=== PATIENT | female | born 1995 | race Caucasian/White ===

== ENCOUNTER 2020-01-31 17:30 | Emergency (ER) | payer OTHER ==
[2020-01-31 18:14] VITALS: RESP 18
[2020-01-31 19:27] LABS: Basophils % (A) 0 %; Eosinophils # (A) 0.1 k/uL (0-0.7); Eosinophils % (A) 1 %; HCT 41.2 % (34.0-46.0); HGB 13.6 gm/dL (11.4-16.0); Lymphocytes # (A) 1.8 k/uL (1.0-4.8); Lymphocytes % (A) 15 %; MCH 30.8 pg (25.0-35.0); MCHC 33.1 g/dL (31.0-37.0); MCV 93.1 fL (80.0-100.0); Monocytes # (A) 0.6 k/uL (0-1.0); Monocytes % (A) 5 %; Neutrophils # (A) 9.5 k/uL (1.3-7.7); Neutrophils % (A) 78 %; Platelet Count 254 k/uL (150-450); RBC 4.42 m/uL (3.80-5.40); RDW 12.3 % (11.5-15.5); WBC 12.2 k/uL (3.8-10.6)
[2020-01-31 19:29] LABS: Appearance,Urine Clear (Clear); Bilirubin,Urine Negative (Negative); Blood,Urine Trace (Negative); Color,Urine Yellow; Glucose,Urine (UA) Negative (Negative); Ketones,Urine Negative (Negative); Leukocyte Esterase,Urine Negative (Negative); Mucus,Urine Occasional /hpf; Nitrite,Urine Negative (Negative); PH, Urine 5.5 (5.0-8.0); Protein,Urine Negative (Negative); RBC,Urine 1 /hpf (0-5); Specific Gravity,Urine 1.012 (1.001-1.035); Squamous Epithelial Cell,Urine 2 /hpf (0-4); Urobilinogen,Urine <2.0 mg/dL (<2.0); WBC,Urine <1 /hpf (0-5)
--- NOTE | 2020-01-31 19:38 | ED ---
Female Urogenital HPI - General Chief complaint: Urogenital Stated complaint: 8 weeks , Vaginal bleeding Time Seen by Provider: 01/31/20 18:16 Source: patient Mode of arrival: ambulatory Limitations: no limitations - History of Present Illness Initial comments: Patient is a 25-year-old female presenting to the emergency Department with complaints of vaginal bleeding as well as mild cramping since yesterday. Patient is currently 8 weeks , . Patient states she recently moved from [place] and does not have an LIQUID CHLORINE OPERATOR here yet. Patient states she had an ultrasound performed at approximately 6 weeks due to some mild spotting, no abnormalities seen on the ultrasound. Patient states she went to have intercourse yesterday when she had some mild bleeding so they stopped. Patient states when she woke up this morning she passed a large clot and has been having some mild spotting since. Patient states she's been having mild cramping throughout this , so its normal rhythm usual. She denies any fever, chills. She denies any nausea or vomiting. She has no further complaints at this time. - Related Data Allergies Allergy/AdvReac Type Severity Reaction Status Date / Time No Known Allergies Allergy Verified 01/31/20 18:14 Review of Systems ROS Statement: Those systems with pertinent positive or pertinent negative responses have been documented in the HPI. ROS Other: All systems not noted in ROS Statement are negative. Past Medical History Past Medical History: No Reported History History of Any Multi-Drug Resistant Organisms: None Reported Past Surgical History: No Surgical Hx Reported Past Psychological History: No Psychological Hx Reported Smoking Status: Never smoker Past Alcohol Use History: None Reported Past Drug Use History: None Reported General Exam - General Exam Comments Initial Comments: GENERAL: Well-appearing, well-nourished and in no acute distress. HEAD: Atraumatic, normocephalic. EYES: Pupils equal round and reactive to light, extraocular movements intact, sclera anicteric, conjunctiva are normal. ENT: TMs normal, nares patent, oropharynx clear without exudates. Moist mucous membranes. NECK: Normal range of motion, supple without lymphadenopathy or JVD. LUNGS: Breath sounds clear to auscultation bilaterally and equal. No wheezes rales or rhonchi. HEART: Regular rate and rhythm without murmurs, rubs or gallops. ABDOMEN: Soft, nontender, normoactive bowel sounds. No guarding, no rebound. No masses appreciated. : Normal external exam, cervical os appears closed, small amount of dark blood in vaginal vault. Normal bimanual exam EXTREMITIES: Normal range of motion, no pitting or edema. No clubbing or cyanosis. NEUROLOGICAL: Normal speech, normal gait. PSYCH: Normal mood, normal affect. SKIN: Warm, Dry, normal turgor, no rashes or lesions noted. Limitations: no limitations Course Vital Signs 01/31/20 01/31/20 18:10 20:52 Temperature 98.5 F 98.0 F Pulse Rate 105 H 87 Respiratory 18 18 Rate Blood Pressure 153/84 131/85 O2 Sat by Pulse 100 99 Oximetry Medical Decision Making - Medical Decision Making Patient is a 25-year-old female, approximately 8 weeks presenting with vaginal bleeding and mild cramping since last night. She is . Lab work shows no acute process, hCG Krunal is 133,000. Urine shows no signs of infection. Ultrasound reveals a live IUP. Patient could have a small subchorionic hemorrhage. No other acute findings. heart rate is measured at 178. Patient's blood type is B+. I discussed these findings with the patient. The patient is stable for discharge at this time. She will follow-up with LIQUID CHLORINE OPERATOR. I did recommend pelvic rest. Return parameters were discussed with the patient and she verbalized understanding. Case discussed with Dr. Tomas. - Lab Data Result diagrams: 01/31/20 18:59 01/31/20 18:59 Lab Results 01/31/20 01/31/20 01/31/20 Range/Units 18:59 18:59 18:59 WBC 12.2 H (3.8-10.6) k/uL RBC 4.42 (3.80-5.40) m/uL Hgb 13.6 (11.4-16.0) gm/dL Hct 41.2 (34.0-46.0) % MCV 93.1 (80.0-100.0) fL MCH 30.8 (25.0-35.0) pg MCHC 33.1 (31.0-37.0) g/dL RDW 12.3 (11.5-15.5) % Plt Count 254 (150-450) k/uL Neutrophils % 78 % Lymphocytes % 15 % Monocytes % 5 % Eosinophils % 1 % Basophils % 0 % Neutrophils # 9.5 H (1.3-7.7) k/uL Lymphocytes # 1.8 (1.0-4.8) k/uL Monocytes # 0.6 (0-1.0) k/uL Eosinophils # 0.1 (0-0.7) k/uL Basophils # 0.0 (0-0.2) k/uL Sodium 135 L (137-145) mmol/L Potassium 3.9 (3.5-5.1) mmol/L Chloride 102 (98-107) mmol/L Carbon Dioxide 23 (22-30) mmol/L Anion Gap 10 mmol/L BUN 8 (7-17) mg/dL Creatinine 0.46 L (0.52-1.04) mg/dL Est GFR (CKD-EPI)AfAm >90 (>60 ml/min/1.73 sqM) Est GFR (CKD-EPI)NonAf >90 (>60 ml/min/1.73 sqM) Glucose 101 H (74-99) mg/dL Calcium 10.0 (8.4-10.2) mg/dL HCG, Quant 594069.0 mIU/mL Urine Color Yellow Urine Appearance Clear (Clear) Urine pH 5.5 (5.0-8.0) Ur Specific [place] 1.012 (1.001-1.035) Urine Protein Negative (Negative) Urine Glucose (UA) Negative (Negative) Urine Ketones Negative (Negative) Urine Blood Trace H (Negative) Urine Nitrite Negative (Negative) Urine Bilirubin Negative (Negative) Urine Urobilinogen <2.0 (<2.0) mg/dL Ur Leukocyte Esterase Negative (Negative) Urine RBC 1 (0-5) /hpf Urine WBC <1 (0-5) /hpf Ur Squamous Epith Cells 2 (0-4) /hpf Urine Mucus Occasional H (None) /hpf Blood Type Blood Type Recheck Bld Type Recheck Status 01/31/20 Range/Units 18:59 WBC (3.8-10.6) k/uL RBC (3.80-5.40) m/uL Hgb (11.4-16.0) gm/dL Hct (34.0-46.0) % MCV (80.0-100.0) fL MCH (25.0-35.0) pg MCHC (31.0-37.0) g/dL RDW (11.5-15.5) % Plt Count (150-450) k/uL Neutrophils % % Lymphocytes % % Monocytes % % Eosinophils % % Basophils % % Neutrophils # (1.3-7.7) k/uL Lymphocytes # (1.0-4.8) k/uL Monocytes # (0-1.0) k/uL Eosinophils # (0-0.7) k/uL Basophils # (0-0.2) k/uL Sodium (137-145) mmol/L Potassium (3.5-5.1) mmol/L Chloride (98-107) mmol/L Carbon Dioxide (22-30) mmol/L Anion Gap mmol/L BUN (7-17) mg/dL Creatinine (0.52-1.04) mg/dL Est GFR (CKD-EPI)AfAm (>60 ml/min/1.73 sqM) Est GFR (CKD-EPI)NonAf (>60 ml/min/1.73 sqM) Glucose (74-99) mg/dL Calcium (8.4-10.2) mg/dL HCG, Quant mIU/mL Urine Color Urine Appearance (Clear) Urine pH (5.0-8.0) Ur Specific [place] (1.001-1.035) Urine Protein (Negative) Urine Glucose (UA) (Negative) Urine Ketones (Negative) Urine Blood (Negative) Urine Nitrite (Negative) Urine Bilirubin (Negative) Urine Urobilinogen (<2.0) mg/dL Ur Leukocyte Esterase (Negative) Urine RBC (0-5) /hpf Urine WBC (0-5) /hpf Ur Squamous Epith Cells (0-4) /hpf Urine Mucus (None) /hpf Blood Type B Positive Blood Type Recheck No Previous Record Bld Type Recheck Status [facility] ONLY Disposition Clinical Impression: Vaginal bleeding in Disposition: HOME SELF-CARE Condition: Stable Instructions (If sedation given, give patient instructions): Non-Threatening First Trimester Vaginal Bleed (ED) Additional Instructions: Please return to the Emergency Department if symptoms worsen or any other concerns. Follow-up with LIQUID CHLORINE OPERATOR as discussed. Is patient prescribed a controlled substance at d/c from ED?: No Referrals: None,Stated [Primary Care Provider] - 1-2 days
[2020-01-31 19:41] LABS: African American GFR (CKD) >90 (>60 ml/min/1.73 sqM); Anion Gap 10 mmol/L; Blood Urea Nitrogen 8 mg/dL (7-17); Carbon Dioxide 23 mmol/L (22-30); Chloride 102 mmol/L (98-107); Glucose 101 mg/dL (74-99); Non-African American GFR(CKD) >90 (>60 ml/min/1.73 sqM); Potassium 3.9 mmol/L (3.5-5.1); Sodium 135 mmol/L (137-145)
--- NOTE | 2020-01-31 20:09 | US ---
EXAMINATION TYPE: Transabdominal DATE OF EXAM: 01/31/2020 7:36 PM COMPARISON: NONE CLINICAL HISTORY: cramping, bleeding, passed large clot. Cramping and bleeding x 2 days. Passed larg e clot. . EXAM PERFORMED: Transabdominal (TA) EXAM MEASUREMENTS: GESTATIONAL AGE / DATING Physician Established: (8 weeks/5 days) EDC: 09/06/2020 Dates by LMP: (8 weeks/5 days) EDC: 09/06/2020 Dates by First Scan: This is first scan. Dates by Current Scan for: (8 weeks/3 days) EDC: 09/08/2020 MATERNAL ANATOMY Uterus: 9.2 x 7.0 x 5.6 cm. Right Ovary: 3.0 x 2.4 x 1.7 cm. Left Ovary: Not seen. Post CDS / Adnexa: Appear wnl. Presence of free fluid: Not seen. Presence of corpus luteal cyst: Not seen. Presence of subchorionic bleed: Possible, subtle hypoechoic area seen adjacent and to the right of th e gestational sac measurin.7 x 1.5 x 1.2 cm. GESTATION / SURVEY CRL: 1.88 cm. (8 weeks/3 days) Yolk Sac (normal less than 6mm): 3.6 mm. Heart Rate: 178 bpm, second measurement: 182 bpm. Rhythm: cardiac activity measured 178 bpm and 182 with M-mode Doppler. IUP: Viable IUP Date of LMP: 12/01/2019 Beta HcG (if available): Not available. IMPRESSION: UTERUS: Living intrauterine . Suspicious subtle finding could represent small subchorionic h emorrhage measuring 17 x 15 x 12 mm. ADNEXA: No abnormalities; left ovary not visualized. CUL-DE-SAC: No fluid.
[2020-01-31 20:53] VITALS: BP 131/85; PULSE 87; TEMP 98
== END 2020-01-31 21:21 | disposition home or self-care (01) ==
LOC: EC 17:30
DX: O46.91 Antepartum hemorrhage, unspecified, first trimester (principal); O99.89 Other specified diseases and conditions complicating pregnancy, childbirth and the puerperium; R10.9 Unspecified abdominal pain; Z3A.08 8 weeks gestation of pregnancy
CPT/HCPCS: 36415; 76801; 80048; 81001; 84702; 85025; 86900; 86901; 99284

== ENCOUNTER 2020-08-09 10:53 | Inpatient (IN) | payer OTHER ==
[2020-08-09] MEDS ORDERED: CITRIC ACID-SODIUM CITRATE 15 ML CUP PO ONE (11:38)
[2020-08-09] MEDS: LACTATED RINGERS 1,000 ML IV SCH ×2 (11:53→14:24)
--- NOTE | 2020-08-09 11:53 | P.HPOB ---
History of Present Illness H&P Date: 08/09/20 Chief Complaint: Spontaneous rupture of membranes This is a 25-year-old female 1 para 0 with an estimated date of confinement of 09/06/2020, estimated gestational age of 36-0/7 weeks, who presents to labor and delivery with complaints of spontaneous rupture of membra sakina this morning at 9:30. She has been feeling cramping for the last couple days. She denies any strong contractions. care has been in [place] up until recently when she saw Dr. Stephenson. She was scheduled for an ultrasound and group B strep culture at her next visit on Tuesday. Her course has been uncomplicated. labs: Blood type-be positive Antibody screen-negative Hemoglobin-13.1 Hepatitis B surface antigen-negative HIV-nonreactive GC/Chlamydia-negative Rubella-immune Pap smear-normal One hour Glucola-106 Obstetrical history: . Gynecologic history: No history of sexual transmitted diseases. Social history: Patient just finished nursing school. She is . Review of Systems Constitutional: Denies chills, Denies fever Eyes: denies blurred vision, denies pain Ears, nose, mouth and throat: Denies headache, Denies sore throat Cardiovascular: Denies chest pain, Denies shortness of breath Respiratory: Denies cough Gastrointestinal: Reports abdominal pain (Irregular cramping), Denies diarrhea, Denies nausea, Denies vomiting Genitourinary: Reports pelvic pain, Reports Musculoskeletal: Reports low back pain Integumentary: Denies pruritus, Denies rash Neurological: Denies numbness, Denies weakness Psychiatric: Denies anxiety, Denies depression Past Medical History Past Medical History: No Reported History History of Any Multi-Drug Resistant Organisms: None Reported Past Surgical History: No Surgical Hx Reported Past Anesthesia/Blood Transfusion Reactions: No Reported Reaction Past Psychological History: No Psychological Hx Reported Smoking Status: Never smoker Past Alcohol Use History: None Reported Past Drug Use History: None Reported Medications and Allergies Home Medications Medication Instructions Recorded Confirmed Type Pnv,Calcium 72/Iron/Folic Acid 1 each PO DAILY 08/09/20 08/09/20 History [ Plus Tablet] Allergies Allergy/AdvReac Type Severity Reaction Status Date / Time No Known Allergies Allergy Verified 08/09/20 11:19 Exam Osteopathic Statement: *. No significant issues noted on an osteopathic structural exam other than those noted in the History and Physical/Consult. Intake and Output 08/08/20 08/09/20 08/09/20 22:59 06:59 14:59 Other: Weight 80.739 kg HEENT: Within normal limits Heart: Regular rate and rhythm Lungs: Clear to auscultation bilaterally Abdomen: Cervix: 1-2 cm 50%/-3, questionable position. Positive clear fluid noted. Positive amnisure. Bedside ultrasound performed by myself showed breech presentation. heart tones: Category 1 Contractions: Every 4-5 minutes. Extremities: Negative Homans Assessment and Plan (1) Breech presentation at Current Visit: Yes Status: Acute Code(s): O32.1XX0 - MATERNAL CARE FOR BREECH PRESENTATION, UNSP SNOMED Code(s): 128326652 (2) Spontaneous rupture of membranes Current Visit: Yes Status: Acute Code(s): QQQ5963 - SNOMED Code(s): 737132012 (3) labor in third trimester with delivery Current Visit: Yes Status: Acute Code(s): O60.14X0 - LABOR THIRD TRI W DELIVERY THIRD TRI, UNSP SNOMED Code(s): 30068065869866568 Plan: Admission for spontaneous rupture of membranes. Patient counseled regarding the need for delivery due to breech presentation and rupture of membranes. All questions answered. Will prep for section. I have discussed the risks, benefits, and alternative therapies for the above- mentioned procedure and for both sedation/anesthesia as well as necessary blood products administration, if indicated, as they pertain to this patient. The patient has indicated her understanding and acceptance of the risks and procedures discussed.
[2020-08-09] MEDS ORDERED: KETOROLAC 15 MG/ML 1 ML VIAL ONE (12:08)
[2020-08-09] MEDS ORDERED: ONDANSETRON 4 MG/2 ML VIAL ONE (12:08)
[2020-08-09] MEDS ORDERED: OXYTOCIN 10 UNIT/ML 1 ML VIAL ONE (12:08)
[2020-08-09] MEDS ORDERED: MORPHINE SULFATE (PF) 0.3 MG/0.3 ML SYR ONE (12:08)
[2020-08-09 12:11] LABS: Basophils % (A) 0 %; Eosinophils # (A) 0.2 k/uL (0-0.7); Eosinophils % (A) 2 %; HGB 11.3 gm/dL (11.4-16.0); Lymphocytes # (A) 1.4 k/uL (1.0-4.8); Lymphocytes % (A) 12 %; MCH 29.7 pg (25.0-35.0); MCHC 32.4 g/dL (31.0-37.0); MCV 91.6 fL (80.0-100.0); Monocytes # (A) 0.7 k/uL (0-1.0); Monocytes % (A) 6 %; Neutrophils # (A) 8.8 k/uL (1.3-7.7); Neutrophils % (A) 78 %; Platelet Count 244 k/uL (150-450); RBC 3.82 m/uL (3.80-5.40); RDW 12.8 % (11.5-15.5); WBC 11.2 k/uL (3.8-10.6)
[2020-08-09] MEDS ORDERED: HYDROmorphone 0.5 MG/0.5 ML SYRINGE IVP PRN (12:35)
[2020-08-09] MEDS ORDERED: diphenhydrAMINE 50 MG/ML 1 ML VIAL IVP PRN ×2 (12:35→14:05)
[2020-08-09] MEDS ORDERED: NALOXONE 0.4 MG/ML 1 ML VIAL IV PRN (12:35)
--- NOTE | 2020-08-09 12:58 | P.OP ---
Date of Procedure: 08/09/20 Preoperative Diagnosis: 1. Intrauterine at 36-0/7 weeks. 2. Spontaneous rupture of membranes. 3. Breech presentation. Postoperative Diagnosis: Same Procedure(s) Performed: Primary low transverse section Anesthesia: spinal (Duramorph) Surgeon: Bozena Coto Forest Ranger Technician #1: Jagruti Kitchen Estimated Blood Loss (ml): 300 Pathology: other (Placenta) Condition: stable Disposition: floor Indications for Procedure: This is a 25-year-old female 1 para 0 at 36-0/7 weeks who presented with spontaneous rupture of membranes. Baby was found to be in the breech presentation. She therefore consented to primary section. I have discussed the risks, benefits, and alternative therapies for the above- mentioned procedure and for both sedation/anesthesia as well as necessary blood products administration, if indicated, as they pertain to this patient. The patient has indicated her understanding and acceptance of the risks and procedures discussed. Operative Findings: A viable female infant is noted in the elle breech presentation with scores of 8 at 1 minute and 9 at 5 minutes and infant weight of 5 lbs. 12 oz. Nuchal cord 2 was noted. Normal uterus tubes and ovaries are noted. Description of Procedure: The patient is taken to the operating room where she is placed in the dorsal supine position with leftward tilt after spinal Duramorph anesthesia is given. She is prepped and draped in the normal sterile fashion. Skin was tested and found to be adequately anesthetized. A Pfannenstiel skin incision was made with a scalpel. A second knife was used to carry the incision down to the underlying layer of fascia. The fascia was nicked in the midline with a scalpel and then extended laterally bilaterally with Richardson scissors. The anterior lip of the fascia was grasped with 2 Haseeb clamps and then dissected off the underlying rectus muscle in the midline with Richardson scissors. The inferior aspect of the fascial incision was grasped with 2 Haseeb clamps and dissected off the underlying rectus muscle and the midline with Richardson scissors. Next the peritoneum layer was tented up with 2 hemostats and then entered sharply with the scalpel. The incision is extended superiorly and inferiorly with Metzenbaum scissors. Next a DeLee retractor is placed. The vesicouterine peritoneum is entered sharply with Metzenbaum scissors and extended laterally bilaterally with Metzenbaum scissors and then the bladder flap is pushed inferiorly. The lower uterine segment is incised in transverse fashion with the scalpel and then bluntly entered with a hemostat. Clear fluid is noted. The incision was then extended laterally bilaterally with 2 fingers. Next the 's buttocks was delivered through the incision followed by each leg in a flexed position, followed by the trunk and then each arm in a flexed position. Next the head was delivered in a flexed position reducing nuchal cord 2 after delivery of the head. Cord was then clamped and cut. Terminal meconium was noted. was taken to warmer for evaluation by pediatric staff. Uterine fundus is gently massaged and placenta is delivered manually. Uterus is exteriorized and cleared of all clots and debris. Uterine incision is closed with 0 Vicryl suture in a running locked fashion. A second layer of 0 Vicryl suture is used in a running fashion for hemostasis. Once adequate hemostasis as assured, the vesicouterine peritoneum is reapproximated with 2-0 Vicryl suture in a running fashion. Posterior cul-de-sac is suctioned of all clots and debris. Uterus is returned to the abdomen. Incision is noted to be hemostatic. Peritoneal layer is closed with 0 Vicryl suture in a running fashion. Muscle layer is reapproximated with 0 Vicryl suture in interrupted fashion. Fascia layer is then closed with 0 PDS suture with 2 sutures meeting in the midline and the knots buried in either side and in the midline. The subcutaneous tissue was then closed with 2-0 Vicryl suture. Skin layer was then closed with yolis. All sponge and needle counts are correct. The patient is taken to recovery room in stable condition.
[2020-08-09] MEDS ORDERED: diphenhydrAMINE 50 MG CAP PO PRN (14:05)
[2020-08-09] MEDS ORDERED: diphenhydrAMINE 25 MG CAP PO PRN (14:05)
[2020-08-09] MEDS ORDERED: OXYTOCIN 20 UNITS/1000 ML NS 1,000 ML IV SCH (14:05)
[2020-08-09] MEDS ORDERED: ZOLPIDEM 5 MG TAB PO PRN (14:05)
[2020-08-09] MEDS ORDERED: HYDROcodone/APAP 5-325MG 1 EACH TAB PO PRN (14:05)
[2020-08-09] MEDS ORDERED: LANOLIN CREAM 5 GM TUBE TOPICAL PRN (14:05)
[2020-08-09] MEDS ORDERED: KETOROLAC 15 MG/ML 1 ML VIAL IVP PRN (14:05)
[2020-08-09] MEDS ORDERED: SIMETHICONE 80 MG CHEWABLE PO PRN (14:05)
[2020-08-09] MEDS ORDERED: HYDROcodone/APAP 7.5-325MG 1 EACH TAB PO PRN (14:05)
[2020-08-09] MEDS: METOCLOPRAMIDE 5 MG/ML 2 ML VIAL IVP PRN ×2 (14:19→20:21)
[2020-08-09] MEDS: CALCIUM CARBONATE 500 MG CHEWABLE PO PRN ×2 (17:01→23:45)
[2020-08-09] MEDS: ONDANSETRON 4 MG/2 ML VIAL IVP PRN ×2 (17:17→23:45)
[2020-08-09] MEDS: SENNOSIDES-DOCUSATE SODIUM 1 EACH TAB PO SCH (21:34)
[2020-08-09] MEDS: KETOROLAC 15 MG/ML 1 ML VIAL IVP PRN (21:49)
[2020-08-10] MEDS: KETOROLAC 15 MG/ML 1 ML VIAL IVP PRN ×2 (03:41→09:10)
[2020-08-10 07:17] LABS: Basophils % (A) 0 %; Eosinophils # (A) 0.2 k/uL (0-0.7); Eosinophils % (A) 1 %; HCT 30.5 % (34.0-46.0); HGB 10.3 gm/dL (11.4-16.0); Lymphocytes # (A) 0.9 k/uL (1.0-4.8); Lymphocytes % (A) 6 %; MCH 30.6 pg (25.0-35.0); MCHC 33.9 g/dL (31.0-37.0); MCV 90.3 fL (80.0-100.0); Mean Platelet Volume 8.6; Monocytes # (A) 0.7 k/uL (0-1.0); Monocytes % (A) 5 %; Neutrophils % (A) 87 %; Platelet Count 199 k/uL (150-450); RBC 3.37 m/uL (3.80-5.40); RDW 12.3 % (11.5-15.5)
[2020-08-10] MEDS: SENNOSIDES-DOCUSATE SODIUM 1 EACH TAB PO SCH ×2 (09:26→20:47)
[2020-08-10] MEDS: LACTATED RINGERS 1,000 ML IV SCH (09:26)
--- NOTE | 2020-08-10 10:04 | P.PN ---
Progress Note - Text Progress Note Date: 08/10/20 Postoperative day 1 status post section under spinal anesthesia, and i ntrathecal morphine given for postoperative analgesia, patient doing well, there is no anesthesia related complications, Patient had no headache, vital signs stable , Assessment and plan= postop day 1 status post , doing well there is no anesthesia related complication.
--- NOTE | 2020-08-10 12:18 | P.PNOBGPC ---
Subjective - Subjective Principal diagnosis: Status post primary section postoperative day #1 Interval history: Patient is doing well. She is ambulating. She is passing some flatus but no bowel movement yet. She has not been able to urinate yet. She has been straight cathed 2 times so far. Bleeding has been minimal. Her pain is been fairly well-controlled. She is breast-feeding. Patient reports: Reports appetite normal, Reports pain well controlled, Reports ambulating normally, Denies voiding normally Jesse: doing well, other (In level I nursery) Objective - Vital Signs Latest vital signs: Vital Signs Temp Pulse Resp BP Pulse Ox 08/10/20 08:00 97.5 F L 102 H 15 112/77 98 08/10/20 05:00 16 99 08/10/20 03:33 98.1 F 89 18 118/73 99 08/10/20 03:00 18 08/10/20 01:00 18 99 08/10/20 00:00 98.3 F 110 H 18 137/86 99 08/09/20 23:00 16 08/09/20 21:00 16 99 08/09/20 20:00 98.3 F 75 16 143/82 99 08/09/20 19:00 18 08/09/20 16:00 97.5 F L 115 H 15 130/75 98 08/09/20 15:02 84 15 115/70 100 08/09/20 14:32 97.5 F L 83 15 112/75 100 08/09/20 14:02 78 15 110/66 100 08/09/20 13:47 79 15 107/59 100 08/09/20 13:32 76 15 107/55 99 08/09/20 13:10 94 15 109/59 99 08/09/20 12:55 96.5 F L 84 15 108/56 99 Intake and Output 08/09/20 08/10/20 08/10/20 22:59 06:59 14:59 Output Total 600 1300 950 Balance -600 -1300 -950 Output: Urine 600 1300 950 Uretheral (Meredith) 300 950 - Exam Extremities: Present: edema Abdomen: Present: normal appearance (Trace), soft. Absent: distention, tenderness Incision: Present: normal, dry, intact. Absent: erythematous Uterus: Present: normal, firm. Absent: tenderness - Labs Labs: Abnormal Lab Results - Last 24 Hours (Table) 12/13/20 Range/Units 07:06 WBC 15.0 H (3.8-10.6) k/uL RBC 3.37 L (3.80-5.40) m/uL Hgb 10.3 L (11.4-16.0) gm/dL Hct 30.5 L (34.0-46.0) % Neutrophils # 13.0 H (1.3-7.7) k/uL Lymphocytes # 0.9 L (1.0-4.8) k/uL Assessment and Plan Assessment: Status post primary section postoperative day #1 (1) Breech presentation at Current Visit: Yes Status: Acute Code(s): O32.1XX0 - MATERNAL CARE FOR BREECH PRESENTATION, UNSP SNOMED Code(s): 481813250 (2) Spontaneous rupture of membranes Current Visit: Yes Status: Acute Code(s): [id number] - SNOMED Code(s): 806447023 (3) labor in third trimester with delivery Current Visit: Yes Status: Acute Code(s): O60.14X0 - LABOR THIRD TRI W DELIVERY THIRD TRI, UNSP SNOMED Code(s): 04228234559090737 Plan: Intake and with postoperative care. Encouraged ambulation and oral fluids. We will continue to work on urination. Pumping breast milk currently.
[2020-08-10] MEDS: ACETAMINOPHEN TAB 325 MG TAB PO PRN ×2 (14:40→21:49)
[2020-08-10] MEDS: IBUPROFEN 600 MG TAB PO PRN (18:02)
[2020-08-11] MEDS: IBUPROFEN 600 MG TAB PO PRN ×2 (00:28→15:31)
[2020-08-11] MEDS: CALCIUM CARBONATE 500 MG CHEWABLE PO PRN (00:30)
--- NOTE | 2020-08-11 08:19 | P.MSEPDOC ---
Presenting Problems - Arrival Data Date of Arrival on Unit: 08/09/20 Time of Arrival on Unit: 11:11 Mode of Transport: Wheelchair - Complaint OB-Reason for Admission/Chief Complaint: Rule Out SROM Comment: SROM for clear fluid at 0923 Medical History - Information : 1 Para: 0 Term: 0 : 0 Abortions: Spontaneous or Elective: 0 Number of Living Children: 0 - Gestational Age Gestational Age by CATHERINE (wks/days): 36 Weeks and 0 Days Review of Systems - Review of Systems Constitutional: No problems Breast: No problems ENT: No problems Cardiovascular: No problems Respiratory: No problems Gastrointestinal: No problems Genitourinary: No problems Musculoskeletal: No problems Neurological: No problems Skin: No problems Vital Signs - Temperature Temperature: 98.0 F Temperature Source: Oral - Pulse Pulse Oximetery Pulse Rate: 99 Pulse Assessment Method: Automatic Cuff - Respirations Respiratory Rate: 16 Oxygen Delivery Method: Room Air O2 Sat by Pulse Oximetry: 99 - Blood Pressure Right Arm Blood Pressure: 120/75 Blood Pressure Mean: 90 Blood Pressure Source: Automatic Cuff Medical Screen Scoring (Pre) - Cervical Exam Dilation: 1-3 cm = 1 Effacement: Exam Deferred Membranes: Ruptured = 3 - Uterine Contractions Frequency: Scheduled / = 6 Duration: N/A Intensity: N/A - Maternal Vital Signs Maternal Temperature: N/A Maternal Blood Pressure: N/A Signs of Preeclampsia: N/A Maternal Respirations: N/A - Maternal Trauma Maternal Trauma: N/A - Assessment - Baby A Baseline FHR: 135 Heart Rate - NICHD Category: Category I (Normal) = 0 NST: Reactive Position: Non-vertex & not laboring = 3 Station: N/A - Total Score - Baby A Total Score - Baby A: 13 - Total Score - Baby B Total Score - Baby B: 10 - Total Score - Baby C Total Score - Baby C: 10 - Level of Risk - Baby A Level of Risk - Baby A: High (10+) - Level of Risk - Baby B Level of Risk - Baby B: High (10+) - Level of Risk - Baby C Level of Risk - Baby C: High (10+) Physician Notification (Pre) - Physician Notified Physician Notified Date: 08/09/20 Physician Notified Time: 20 New Order Received: Yes Disposition - Disposition OB Disposition: Admit I agree with the RN Medical Screening Exam: Yes Risk & Benefit of care provided described in d/c instruction: Yes Diagnosis: LABOR THIRD TRI W DELIVERY THIRD TRI, OTH
[2020-08-11] MEDS: SENNOSIDES-DOCUSATE SODIUM 1 EACH TAB PO SCH ×2 (08:40→19:47)
[2020-08-11] MEDS: ACETAMINOPHEN TAB 325 MG TAB PO PRN ×2 (08:53→19:47)
[2020-08-11] MEDS: CEPHALEXIN 500 MG CAP PO SCH ×2 (17:14→22:19)
--- NOTE | 2020-08-12 06:38 | P.PNOBGPC ---
Subjective - Subjective Patient reports: Reports appetite normal, Reports voiding normally, Reports pain well controlled, Reports ambulating normally Shelby: doing well Objective - Vital Signs Latest vital signs: Vital Signs Temp Pulse Resp BP Pulse Ox 08/11/20 23:31 98.1 F 82 16 119/70 08/11/20 23:29 100 16 08/11/20 15:40 98.2 F 100 16 105/64 08/11/20 09:00 98.2 F 105 H 17 114/89 99 08/11/20 08:19 98.0 F 99 16 120/75 99 - Exam Lungs: bilateral: normal Chest: Normal S1, Normal S2 Extremities: Present: normal Abdomen: Present: soft. Absent: distention, tenderness Incision: Present: normal, dry, intact Uterus: Present: normal, firm Comments: Patient has some redness around the incision that is nontender or warm. Assessment and Plan Assessment: Postoperative day #3. Patient is resting without complaints. She did develop some discoloration around her incision and abdomen yesterday and I examined her and it appeared to have some red color. Did not feel warm to touch did not have a typical appearance of a cellulitis but to be safe I placed her on oral Keflex. I am also going to check a CBC today. Plan is to continue postoperative care and I'll reexamine her abdomen today at noon. (1) S/P section Current Visit: Yes Status: Acute Code(s): Z98.891 - HISTORY OF UTERINE SCAR FROM PREVIOUS SURGERY SNOMED Code(s): 870881546
[2020-08-12 07:18] LABS: Basophils # (A) 0.1 k/uL (0-0.2); Basophils % (A) 0 %; Eosinophils # (A) 0.4 k/uL (0-0.7); Eosinophils % (A) 4 %; HCT 32.7 % (34.0-46.0); HGB 10.7 gm/dL (11.4-16.0); Lymphocytes # (A) 1.1 k/uL (1.0-4.8); Lymphocytes % (A) 10 %; MCH 30.2 pg (25.0-35.0); MCHC 32.8 g/dL (31.0-37.0); MCV 92.1 fL (80.0-100.0); Mean Platelet Volume 8.4; Monocytes # (A) 0.6 k/uL (0-1.0); Monocytes % (A) 5 %; Neutrophils # (A) 8.8 k/uL (1.3-7.7); Neutrophils % (A) 78 %; Platelet Count 246 k/uL (150-450); RBC 3.55 m/uL (3.80-5.40); RDW 12.6 % (11.5-15.5); WBC 11.2 k/uL (3.8-10.6)
[2020-08-12] MEDS: SENNOSIDES-DOCUSATE SODIUM 1 EACH TAB PO SCH ×2 (09:23→21:59)
[2020-08-12] MEDS: CEPHALEXIN 500 MG CAP PO SCH ×4 (09:23→21:58)
[2020-08-12] MEDS: IBUPROFEN 600 MG TAB PO PRN ×2 (13:11→19:14)
[2020-08-12] MEDS: ACETAMINOPHEN TAB 325 MG TAB PO PRN ×2 (17:32→22:42)
--- NOTE | 2020-08-13 06:34 | P.PNOBGPC ---
Subjective - Subjective Patient reports: Reports appetite normal, Reports voiding normally, Reports pain well controlled, Reports ambulating normally : doing well Objective - Vital Signs Latest vital signs: Vital Signs Temp Pulse Resp BP Pulse Ox 08/13/20 00:00 97.4 F L 98 18 130/88 100 08/12/20 16:00 98.1 F 92 16 136/72 08/12/20 08:00 98.1 F 100 17 135/74 - Exam Lungs: bilateral: normal Chest: Normal S1, Normal S2 Extremities: Present: normal Abdomen: Present: normal appearance, soft. Absent: distention, tenderness Incision: Present: normal, dry, intact Uterus: Present: normal, firm - Labs Labs: Abnormal Lab Results - Last 24 Hours (Table) 08/12/20 Range/Units 06:45 WBC 11.2 H (3.8-10.6) k/uL RBC 3.55 L (3.80-5.40) m/uL Hgb 10.7 L (11.4-16.0) gm/dL Hct 32.7 L (34.0-46.0) % Neutrophils # 8.8 H (1.3-7.7) k/uL Assessment and Plan Assessment: Postoperative day #4. Patient is resting without complaints. Vital signs are stable she is afebrile. Uterus is firm nontender her incision is intact and dry. Still some red discoloration around the incision but it is not warm or tenderness does appear improved. Plan today is to continue routine postoperative care. Discharge home later today. Follow-up with me in 1 week. (1) S/P section Current Visit: Yes Status: Acute Code(s): Z98.891 - HISTORY OF UTERINE SCAR FROM PREVIOUS SURGERY SNOMED Code(s): 282068172
--- NOTE | 2020-08-13 06:43 | P.DS ---
Providers Date of admission: 08/09/20 11:11 Expected date of discharge: 08/13/20 Attending physician: Kush Stephenson Primary care physician: Stated None - Discharge Diagnosis(es) (1) S/P section Current Visit: Yes Status: Acute Hospital Course: Please see dictated H&P for intimate details of this patient's admission. Brief summary is a pleasant 25-year-old 1 para 0 female 36 weeks gestation who is admitted to labor and delivery with spontaneous rupture membranes (PROM) and breech presentation. Patient undergoes a primary low transverse section for viable female . Please see dictated delivery note. Postoperative patient does well home but on postoperative 2 developed some discoloration of the incision and although this was not considered to be a cellulitis I did prophylactically place her on oral Keflex. Postoperative 4 patient's felt be stable for discharge home follow up with me in approximately 1 week. Procedures: Primary low transverse section Patient Condition at Discharge: Good Plan - Discharge Summary New Discharge Prescriptions: New Cephalexin [Keflex] 500 mg PO QID 5 Days #20 cap Ibuprofen [Motrin] 600 mg PO Q6HR PRN #40 tab PRN Reason: Mild Pain Or Fever >= 100.5 HYDROcodone/APAP 5-325MG [[place] 5-325] 1 each PO Q4HR PRN #18 tab PRN Reason: Moderate Pain No Action Pnv,Calcium 72/Iron/Folic Acid [ Plus Tablet] 1 each PO DAILY Discharge Medication List Pnv,Calcium 72/Iron/Folic Acid [ Plus Tablet] 1 each PO DAILY 08/09/20 [History] Cephalexin [Keflex] 500 mg PO QID 5 Days #20 cap 08/13/20 [Rx] HYDROcodone/APAP 5-325MG [[place] 5-325] 1 each PO Q4HR PRN #18 tab 08/13/20 [Rx] Ibuprofen [Motrin] 600 mg PO Q6HR PRN #40 tab 08/13/20 [Rx] Follow up Appointment(s)/Referral(s): Kush Stephenson MD [STAFF PHYSICIAN] - 08/25/20 2:30 pm (Please see me on September 18 at 10:15 AM for a visit as well.) Patient Instructions/Handouts: (DC) Activity/Diet/Wound Care/Special Instructions: No heavy lifting or strenuous activities for 6 weeks. Please call if any fever, chills, excessive vaginal bleeding, and/or abdominal pain. Discharge Disposition: HOME SELF-CARE
[2020-08-13] MEDS: IBUPROFEN 600 MG TAB PO PRN ×2 (07:51→18:50)
[2020-08-13] MEDS: SENNOSIDES-DOCUSATE SODIUM 1 EACH TAB PO SCH ×2 (08:01→20:19)
[2020-08-13] MEDS: CEPHALEXIN 500 MG CAP PO SCH ×4 (09:27→22:53)
[2020-08-13 15:52] LABS: Basophils % (A) 0 %; Eosinophils # (A) 0.4 k/uL (0-0.7); Eosinophils % (A) 4 %; HCT 34.3 % (34.0-46.0); HGB 11.1 gm/dL (11.4-16.0); Lymphocytes # (A) 1.9 k/uL (1.0-4.8); Lymphocytes % (A) 19 %; MCH 29.5 pg (25.0-35.0); MCHC 32.4 g/dL (31.0-37.0); MCV 90.9 fL (80.0-100.0); Mean Platelet Volume 8.2; Monocytes # (A) 0.6 k/uL (0-1.0); Monocytes % (A) 6 %; Neutrophils # (A) 6.9 k/uL (1.3-7.7); Neutrophils % (A) 68 %; Platelet Count 312 k/uL (150-450); RBC 3.77 m/uL (3.80-5.40); RDW 12.8 % (11.5-15.5); WBC 10.1 k/uL (3.8-10.6)
[2020-08-13 15:58] LABS: Uric Acid 3.9 mg/dL (3.7-7.4)
--- NOTE | 2020-08-13 17:01 | P.PN ---
Progress Note - Text Progress Note Date: 08/13/20 Patient has developed elevated blood pressures the highest 144/96. I did order preeclampsia blood work and she's had mild elevation of her AST and ALTs. Uric acid and platelets are normal. Repeat blood pressures are only slightly elevated. Patient does have some edema but this appears to be normal. She's having no headache or other signs or symptoms. Plan is to continue in-hospital observation with serial blood pressures and repeat blood work in the morning. I had a long discussion with the patient and her about my concerns and need for continued hospitalization.
[2020-08-13] MEDS: ACETAMINOPHEN TAB 325 MG TAB PO PRN (20:04)
[2020-08-14] MEDS: IBUPROFEN 600 MG TAB PO PRN ×3 (00:43→14:44)
[2020-08-14 05:59] LABS: Basophils # (A) 0.1 k/uL (0-0.2); Basophils % (A) 1 %; Eosinophils # (A) 0.5 k/uL (0-0.7); Eosinophils % (A) 5 %; HCT 34.9 % (34.0-46.0); HGB 11.4 gm/dL (11.4-16.0); Lymphocytes # (A) 1.6 k/uL (1.0-4.8); Lymphocytes % (A) 18 %; MCH 30.1 pg (25.0-35.0); MCHC 32.6 g/dL (31.0-37.0); MCV 92.3 fL (80.0-100.0); Mean Platelet Volume 7.9; Monocytes # (A) 0.5 k/uL (0-1.0); Monocytes % (A) 5 %; Neutrophils # (A) 6.3 k/uL (1.3-7.7); Neutrophils % (A) 69 %; Platelet Count 297 k/uL (150-450); RBC 3.78 m/uL (3.80-5.40); RDW 12.4 % (11.5-15.5); WBC 9.1 k/uL (3.8-10.6)
[2020-08-14 06:05] LABS: ALT 63 U/L (4-34); AST 44 U/L (14-36); African American GFR (CKD) >90 (>60 ml/min/1.73 sqM); Albumin 3.3 g/dL (3.5-5.0); Alkaline Phosphatase 176 U/L (38-126); Bilirubin, Delta 0.1 mg/dL (0.0-0.2); Bilirubin,Unconjugated 0.2 mg/dL (0.0-1.1); Non-African American GFR(CKD) >90 (>60 ml/min/1.73 sqM); Total Bilirubin 0.3 mg/dL (0.2-1.3); Total Protein 6.4 g/dL (6.3-8.2)
--- NOTE | 2020-08-14 06:29 | P.PNOBGPC ---
Subjective - Subjective Patient reports: Reports appetite normal, Reports voiding normally, Reports pain well controlled, Reports ambulating normally : doing well Objective - Vital Signs Latest vital signs: Vital Signs Temp Pulse Resp BP Pulse Ox 08/14/20 03:40 97.7 F 98 18 135/87 98 08/14/20 00:40 98.4 F 93 18 125/88 100 08/13/20 20:20 98.0 F 104 H 18 129/90 96 08/13/20 15:28 97.9 F 98 16 137/93 99 08/13/20 15:00 94 16 144/96 99 08/13/20 07:56 98.1 F 96 16 131/64 100 - Exam Lungs: bilateral: normal Chest: Normal S1, Normal S2 Extremities: Present: normal Abdomen: Present: normal appearance, soft. Absent: distention, tenderness Incision: Present: normal, dry, intact Uterus: Present: normal, firm - Labs Labs: Abnormal Lab Results - Last 24 Hours (Table) 08/13/20 08/13/20 08/14/20 Range/Units 15:28 15:28 05:43 RBC 3.77 L 3.78 L (3.80-5.40) m/uL Hgb 11.1 L (11.4-16.0) gm/dL AST 62 H (14-36) U/L ALT 81 H (4-34) U/L Alkaline Phosphatase (38-126) U/L Albumin (3.5-5.0) g/dL 08/14/20 Range/Units 05:43 RBC (3.80-5.40) m/uL Hgb (11.4-16.0) gm/dL AST 44 H (14-36) U/L ALT 63 H (4-34) U/L Alkaline Phosphatase 176 H (38-126) U/L Albumin 3.3 L (3.5-5.0) g/dL Assessment and Plan Assessment: Stop operative day #5. I kept this patient yesterday because she had several mild blood pressure elevations and blood work showed some elevated liver function tests. She was for the most part asymptomatic. Blood pressures over night and then good 120s to 130s over 80s. Repeat liver tests this morning show both improvement in her AST and ALTs. At this time there is no evidence of hypertension requiring treatment or indication to continue inpatient hospitalization. Plan is to discharge home follow up with me in approximately 1 week for blood pressure check and a repeat her liver tests that time. (1) S/P section Current Visit: Yes Status: Acute Code(s): Z98.891 - HISTORY OF UTERINE SCAR FROM PREVIOUS SURGERY SNOMED Code(s): 414265918
[2020-08-14] MEDS: CEPHALEXIN 500 MG CAP PO SCH ×3 (07:59→18:05)
[2020-08-14] MEDS: SENNOSIDES-DOCUSATE SODIUM 1 EACH TAB PO SCH (07:59)
[2020-08-14 08:08] VITALS: RESP 16
[2020-08-14] MEDS: ACETAMINOPHEN TAB 325 MG TAB PO PRN ×2 (11:00→16:46)
[2020-08-14 17:35] VITALS: BP 133/83; PULSE 101; TEMP 98.6
== END 2020-08-14 19:00 | disposition home or self-care (01) | DRG 786 ==
LOC: FBPOP 10:53 → 4FBP 11:11
PROVIDERS: ADMIT Obstetrics & Gynecology; ATTEND Obstetrics & Gynecology
PROC: 10D00Z1 Extraction of Products of Conception, Low, Open Approach (ICD-10-PCS; principal; 2020-08-09 12:19)
DX: O32.1XX0 Maternal care for breech presentation, not applicable or unspecified (principal); O60.14X0 Preterm labor third trimester with preterm delivery third trimester, not applicable or unspecified; O42.013 Preterm premature rupture of membranes, onset of labor within 24 hours of rupture, third trimester; O69.81X0 Labor and delivery complicated by cord around neck, without compression, not applicable or unspecified; Z37.0 Single live birth; Z3A.36 36 weeks gestation of pregnancy; Z79.899 Other long term (current) drug therapy
CPT/HCPCS: 80076; 82565; 84450; 84460; 84550; 85025; 86850; 86900; 86901; 88307

== ENCOUNTER 2021-09-27 12:18 | Emergency (ER) | payer OTHER ==
[2021-09-27] MEDS ORDERED: ONDANSETRON 4 MG/2 ML VIAL IVP STA (12:59)
[2021-09-27] MEDS ORDERED: SODIUM CHLORIDE 0.9% 2,000 ML IV STA (12:59)
--- NOTE | 2021-09-27 13:04 | ED ---
General Adult HPI - General Chief complaint: Nausea/Vomiting/Diarrhea Stated complaint: N/V/D Dr Coto sent pt in Time Seen by Provider: 09/27/21 12:38 Source: patient Mode of arrival: ambulatory Limitations: no limitations - History of Present Illness Initial comments: This 26-year-old female who is 9 weeks presents to the emergency department with nausea vomiting and diarrhea that began last night. Patient states she had [employer] yesterday for lunch and states she may have eaten something which resulted in her having food poisoning. Patient states she has had some nausea and vomiting throughout this but nothing like now. Patient states last night she began to experience nausea and vomited about one time per hour until this morning. Patient states she also experienced 2 episodes of nonbloody diarrhea which has since resolved. Patient states she did take Zofran yesterday which seemed to help for a little bit of time. Patient states she has been able to keep down Pedialyte today but has not tried to eat any food. Patient denies any hemoptysis or blood in her stool. Patient denies any chest pain, shortness of breath, fever, abdominal pain, headache, change in vision. Patient denies any vaginal bleeding or abdominal cramping. Patient states she called her [facility], Dr. Coto who told her to come here and get some fluids. - Related Data Home Medications Medication Instructions Recorded Confirmed Pnv,Calcium 72/Iron/Folic Acid 1 tab PO DAILY 08/09/20 09/27/21 [ Plus Tablet] Ondansetron [Zofran] 4 mg PO Q12HR PRN 09/27/21 09/27/21 Previous Rx's Medication Instructions Recorded Ondansetron Odt [Zofran ODT] 4 mg PO Q8HR PRN #15 tab 09/27/21 Allergies Allergy/AdvReac Type Severity Reaction Status Date / Time No Known Allergies Allergy Verified 09/27/21 13:24 Review of Systems ROS Statement: Those systems with pertinent positive or pertinent negative responses have been documented in the HPI. ROS Other: All systems not noted in ROS Statement are negative. Past Medical History Past Medical History: No Reported History History of Any Multi-Drug Resistant Organisms: None Reported Past Surgical History: Section Past Anesthesia/Blood Transfusion Reactions: No Reported Reaction Past Psychological History: No Psychological Hx Reported Smoking Status: Never smoker Past Alcohol Use History: None Reported Past Drug Use History: None Reported - Past Family History Mother Family Medical History: No Reported History General Exam Limitations: no limitations General appearance: alert, in no apparent distress Head exam: Present: atraumatic, normocephalic, normal inspection Eye exam: Present: normal appearance, EOMI Pupils: Present: normal accommodation ENT exam: Present: normal exam, mucous membranes moist Neck exam: Present: full ROM Respiratory exam: Present: normal lung sounds bilaterally. Absent: respiratory distress, wheezes, rales, rhonchi, stridor Cardiovascular Exam: Present: regular rate, normal rhythm, normal heart sounds. Absent: systolic murmur, diastolic murmur, rubs, gallop, clicks GI/Abdominal exam: Present: soft, normal bowel sounds. Absent: distended, tenderness, guarding, rebound, rigid Extremities exam: Present: normal inspection, full ROM, normal capillary refill. Absent: tenderness, pedal edema, joint swelling, calf tenderness Back exam: Present: full ROM. Absent: tenderness, CVA tenderness (R), CVA tenderness (L) Neurological exam: Present: alert, oriented X3, CN II-XII intact Psychiatric exam: Present: normal affect, normal mood Skin exam: Present: warm, dry, intact, normal color. Absent: rash Course Vital Signs 09/27/21 09/27/21 12:27 14:43 Temperature 98.2 F Pulse Rate 102 H 100 Respiratory 16 18 Rate Blood Pressure 119/70 100/48 O2 Sat by Pulse 99 98 Oximetry - Reevaluation(s) Reevaluation #1: 09/27/21 15:10 Patient states she feels much better she denies any nausea at this time. Medical Decision Making - Medical Decision Making This 26-year-old female presents to the emergency department 9 weeks with nausea, vomiting, diarrhea that began last night after she ate [employer]. Fluids and Zofran given and patient states she feels well-hydrated and no longer has any nausea. Patient states she feels well no complaints other than being tired because she got no sleep last night. Labs unremarkable. Urine with 2+ ketones, 2 L of fluid were given. Patient to follow up with [facility] in next 24- 48 hours. Strict return precautions were discussed. Patient verbally agreed to plan. Patient sent home in stable condition. - Lab Data Result diagrams: 09/27/21 13:05 09/27/21 13:05 Lab Results 09/27/21 09/27/21 09/27/21 Range/Units 13:05 13:05 13:05 WBC 7.5 (3.8-10.6) k/uL RBC 4.69 (3.80-5.40) m/uL Hgb 14.6 (11.4-16.0) gm/dL Hct 42.5 (34.0-46.0) % MCV 90.6 (80.0-100.0) fL MCH 31.0 (25.0-35.0) pg MCHC 34.3 (31.0-37.0) g/dL RDW 13.4 (11.5-15.5) % Plt Count 177 (150-450) k/uL MPV 8.9 Neutrophils % 88 % Lymphocytes % 5 % Monocytes % 5 % Eosinophils % 1 % Basophils % 0 % Neutrophils # 6.6 (1.3-7.7) k/uL Lymphocytes # 0.4 L (1.0-4.8) k/uL Monocytes # 0.4 (0-1.0) k/uL Eosinophils # 0.1 (0-0.7) k/uL Basophils # 0.0 (0-0.2) k/uL Sodium 133 L (137-145) mmol/L Potassium 3.6 (3.5-5.1) mmol/L Chloride 106 (98-107) mmol/L Carbon Dioxide 19 L (22-30) mmol/L Anion Gap 8 mmol/L BUN 8 (7-17) mg/dL Creatinine 0.49 L (0.52-1.04) mg/dL Est GFR (CKD-EPI)AfAm >90 (>60 ml/min/1.73 sqM) Est GFR (CKD-EPI)NonAf >90 (>60 ml/min/1.73 sqM) Glucose 101 H (74-99) mg/dL Calcium 8.7 (8.4-10.2) mg/dL Total Bilirubin 0.6 (0.2-1.3) mg/dL AST 26 (14-36) U/L ALT 18 (4-34) U/L Alkaline Phosphatase 64 (38-126) U/L Total Protein 7.2 (6.3-8.2) g/dL Albumin 4.0 (3.5-5.0) g/dL Lipase 64 (23-300) U/L Urine Color Light Yellow Urine Appearance Clear (Clear) Urine pH 5.5 (5.0-8.0) Ur Specific [place] 1.013 (1.001-1.035) Urine Protein Negative (Negative) Urine Glucose (UA) Negative (Negative) Urine Ketones 2+ H (Negative) Urine Blood Negative (Negative) Urine Nitrite Negative (Negative) Urine Bilirubin Negative (Negative) Urine Urobilinogen <2.0 (<2.0) mg/dL Ur Leukocyte Esterase Negative (Negative) Disposition Clinical Impression: Dehydration during , Nausea and vomiting during Disposition: HOME SELF-CARE Condition: Stable Instructions (If sedation given, give patient instructions): Hyperemesis Gravidarum (ED) Additional Instructions: Please return to the emergency department with any concerning, new, or worsening symptoms. Please follow up with [facility] in next 24-48 hours. Prescriptions: Ondansetron Odt [Zofran ODT] 4 mg PO Q8HR PRN #15 tab PRN Reason: Nausea And Vomiting Is patient prescribed a controlled substance at d/c from ED?: No Referrals: None,Stated [Primary Care Provider] - 1-2 days Time of Disposition: 15:17
[2021-09-27 13:17] LABS: Basophils % (A) 0 %; Eosinophils # (A) 0.1 k/uL (0-0.7); Eosinophils % (A) 1 %; HCT 42.5 % (34.0-46.0); HGB 14.6 gm/dL (11.4-16.0); Lymphocytes # (A) 0.4 k/uL (1.0-4.8); Lymphocytes % (A) 5 %; MCHC 34.3 g/dL (31.0-37.0); MCV 90.6 fL (80.0-100.0); Mean Platelet Volume 8.9; Monocytes # (A) 0.4 k/uL (0-1.0); Monocytes % (A) 5 %; Neutrophils # (A) 6.6 k/uL (1.3-7.7); Neutrophils % (A) 88 %; Platelet Count 177 k/uL (150-450); RBC 4.69 m/uL (3.80-5.40); RDW 13.4 % (11.5-15.5); WBC 7.5 k/uL (3.8-10.6)
[2021-09-27 13:42] LABS: ALT 18 U/L (4-34); AST 26 U/L (14-36); African American GFR (CKD) >90 (>60 ml/min/1.73 sqM); Alkaline Phosphatase 64 U/L (38-126); Anion Gap 8 mmol/L; Blood Urea Nitrogen 8 mg/dL (7-17); Calcium 8.7 mg/dL (8.4-10.2); Carbon Dioxide 19 mmol/L (22-30); Chloride 106 mmol/L (98-107); Glucose 101 mg/dL (74-99); Lipase 64 U/L (23-300); Non-African American GFR(CKD) >90 (>60 ml/min/1.73 sqM); Potassium 3.6 mmol/L (3.5-5.1); Sodium 133 mmol/L (137-145); Total Bilirubin 0.6 mg/dL (0.2-1.3); Total Protein 7.2 g/dL (6.3-8.2)
[2021-09-27 14:50] LABS: Appearance,Urine Clear (Clear); Bilirubin,Urine Negative (Negative); Blood,Urine Negative (Negative); Color,Urine Light Yellow; Glucose,Urine (UA) Negative (Negative); Ketones,Urine 2+ (Negative); Leukocyte Esterase,Urine Negative (Negative); Nitrite,Urine Negative (Negative); PH, Urine 5.5 (5.0-8.0); Protein,Urine Negative (Negative); Specific Gravity,Urine 1.013 (1.001-1.035); Urobilinogen,Urine <2.0 mg/dL (<2.0)
[2021-09-27 15:34] VITALS: BP 108/50; PULSE 92; RESP 20; TEMP 98.1
== END 2021-09-27 15:33 | disposition home or self-care (01) ==
LOC: EC 12:18
DX: O99.281 Endocrine, nutritional and metabolic diseases complicating pregnancy, first trimester (principal); O21.9 Vomiting of pregnancy, unspecified; Z3A.09 9 weeks gestation of pregnancy
CPT/HCPCS: 36415; 80053; 83690; 85025; 81003; 99284; 96374; J2405

== ENCOUNTER 2022-02-10 21:25 | Outpatient (CLI) | payer OTHER ==
[2022-02-10 23:20] LABS: Appearance,Urine Clear (Clear); Bilirubin,Urine Negative (Negative); Blood,Urine Negative (Negative); Color,Urine Light Yellow; Glucose,Urine (UA) Negative (Negative); Ketones,Urine Negative (Negative); Leukocyte Esterase,Urine Negative (Negative); Nitrite,Urine Negative (Negative); PH, Urine 5.5 (5.0-8.0); Protein,Urine Negative (Negative); Specific Gravity,Urine 1.011 (1.001-1.035); Urobilinogen,Urine <2.0 mg/dL (<2.0)
[2022-02-10 23:34] VITALS: BP 120/75; PULSE 99; RESP 16; TEMP 98.3
--- NOTE | 2022-02-11 06:47 | P.MSEPDOC ---
Presenting Problems - Arrival Data Date of Arrival on Unit: 02/10/22 Time of Arrival on Unit: 21:25 Mode of Transport: Ambulatory - Complaint OB-Reason for Admission/Chief Complaint: Pain Comment: abd pain 6/10 left lower abd Medical History - Information : 2 Para: 1 Term: 0 : 1 Abortions: Spontaneous or Elective: 0 Number of Living Children: 1 - Gestational Age Gestational Age by CATHERINE (wks/days): 28 Weeks and 6 Days Review of Systems - Review of Systems Constitutional: No problems Breast: No problems ENT: No problems Cardiovascular: No problems Respiratory: No problems Gastrointestinal: No problems Genitourinary: No problems Musculoskeletal: No problems Neurological: No problems Skin: No problems Vital Signs - Temperature Temperature: 98.3 F Temperature Source: Oral - Pulse Pulse Oximetery Pulse Rate: 99 Pulse Assessment Method: Pulse Oximetry - Respirations Respiratory Rate: 16 Oxygen Delivery Method: Room Air - Blood Pressure Right Arm Blood Pressure: 120/75 Blood Pressure Mean: 90 Blood Pressure Source: Automatic Cuff Medical Screen Scoring - Cervical Exam Dilation (cm): 0 Effacement (%): 0 Station: 0 Membranes: Intact - Assessment - Baby A Baseline FHR: 150 Heart Rate - NICHD Category: Category I (Normal) NST: Reactive Physician Notification - Physician Notified Physician Notified Date: 02/10/22 Physician Notified Time: 21:50 Physician: Kush Stephenson New Order Received: Yes - Notification Comment Comment: orders for ffn and cervical check. if closed then don't send ffn. send u/a if normal pt can be d/c Maternal Triage Index - Maternal Triage Index Presenting for scheduled procedure w/no complaint: No - Stat/Priority 1 Stat Priority 1: No - Urgent/Priority 2 Urgent Priority 2: No - Prompt/Priority 3 Prompt Priority 3: No - Non-Urgent/Priority 4 Non-Urgent Priority 4: Yes Criteria Met for Priority 4: abd pain Disposition - Disposition OB Disposition: Discharge to home Discharge Date: 02/10/22 Discharge Time: 23:28 I agree with the RN Medical Screening Exam: Yes Case reviewed; plan agreed upon as documented in EMR&OBIX.: Yes Diagnosis: FALSE LABOR BEFORE 37 COMPLETED WEEKS OF GEST, THIRD TRI
== END 2022-02-10 23:28 | disposition home or self-care (01) ==
LOC: FBPOP 21:25
PROVIDERS: ATTEND Obstetrics & Gynecology
DX: O47.03 False labor before 37 completed weeks of gestation, third trimester (principal); Z3A.28 28 weeks gestation of pregnancy
CPT/HCPCS: 59025; 81003; 99213

== ENCOUNTER 2022-04-12 08:35 | Inpatient (IN) | payer OTHER ==
[2022-04-12] MEDS ORDERED: METHYLERGONOVINE 0.2 MG/ML 1 ML AMP IM PRN (09:46)
[2022-04-12] MEDS ORDERED: CARBOPROST TROMETHAMINE 250 MCG/ML 1 ML AMP IM PRN (09:46)
[2022-04-12] MEDS ORDERED: OXYTOCIN 10 UNIT/ML 1 ML VIAL IM PRN (09:46)
[2022-04-12] MEDS ORDERED: TERBUTALINE 1 MG/ML VIAL SQ PRN (09:46)
[2022-04-12] MEDS ORDERED: LIDOCAINE 0.5% (PF) 5 MG/ML (50 ML SDV) SQ PRN (09:46)
[2022-04-12] MEDS ORDERED: OXYTOCIN 30 UNITS/500 ML NS 30 UNIT in SALINE 1 500ML.BAG IV SCH ×2 (10:00→22:35)
[2022-04-12] MEDS: LACTATED RINGERS 1,000 ML IV SCH ×2 (10:11→13:59)
[2022-04-12 10:14] LABS: Basophils % (A) 0 %; Eosinophils # (A) 0.1 k/uL (0-0.7); Eosinophils % (A) 1 %; HCT 35.9 % (34.0-46.0); HGB 11.4 gm/dL (11.4-16.0); Hypochromasia Slight; Lymphocytes % (A) 19 %; MCH 26.9 pg (25.0-35.0); MCHC 31.7 g/dL (31.0-37.0); Mean Platelet Volume 9.1; Monocytes # (A) 0.5 k/uL (0-1.0); Monocytes % (A) 5 %; Neutrophils # (A) 7.7 k/uL (1.3-7.7); Neutrophils % (A) 73 %; Platelet Count 263 k/uL (150-450); RBC 4.22 m/uL (3.80-5.40); RDW 13.1 % (11.5-15.5); WBC 10.6 k/uL (3.8-10.6)
--- NOTE | 2022-04-12 12:17 | P.HPOB ---
History of Present Illness H&P Date: 04/12/22 Chief Complaint: Gush of fluid. This patient is a pleasant 27-year-old 2 para 1 female estimated date of confinement 04/29/2022 estimated gestational age 37-4/7 weeks who presents to labor and delivery with a gush of fluid at 6:00 this morning. Patient's care has been uncomplicated. She did have a previous last at 36 weeks secondary to PROM with breech presentation. Patient I discussed options for delivery and she is elected to proceed with vaginal after section. She denied discussed the benefits and risks of this. Review of Systems Genitourinary: Reports Menstruation: Reports amenorrhea Past Medical History Past Medical History: No Reported History History of Any Multi-Drug Resistant Organisms: None Reported Past Surgical History: Section Past Anesthesia/Blood Transfusion Reactions: No Reported Reaction Past Psychological History: No Psychological Hx Reported Smoking Status: Never smoker Past Alcohol Use History: None Reported Past Drug Use History: None Reported - Past Family History Mother Family Medical History: No Reported History Medications and Allergies Home Medications Medication Instructions Recorded Confirmed Type Vit No.180/Iron/Folic 1 tab PO DAILY 08/09/20 04/12/22 History [ Plus Tablet] Allergies Allergy/AdvReac Type Severity Reaction Status Date / Time No Known Allergies Allergy Verified 04/12/22 09:17 Exam Vital Signs Temp Pulse Resp BP Pulse Ox 04/12/22 09:21 97.2 F L 108 H 16 154/96 98 Intake and Output 04/11/22 04/12/22 04/12/22 22:59 06:59 14:59 Other: Weight 89.358 kg - OBG Physical Exam Abdomen: bowel sounds normal, no diffuse tenderness, no bruit present, no guar ding noted, no hepatomegaly, no splenomegaly, no mass Vulva: both: normal Vagina: normal moisture, no discharge Cervix: no lesion (Cervix is 2-3 cm completely effaced -1 station.), no discharge Uterus: enlarged (Fundal height is 36 cm) Results blood work shows she is B positive, rubella immune, RPR nonreactive, hepatitis B negative, HIV is nonreactive, Glucola was normal, group B strep was negative, ultrasound done approximately 2 weeks ago showed the baby 5 lbs. 9 oz. Result Diagrams: 04/12/22 09:50 Assessment and Plan Assessment: This is a pleasant 27-year-old 2 para 1 female 37-5/7 weeks' gestation who presents to labor and delivery with spontaneous rupture membranes earlier this morning. Patient's had a previous section for breech presentation is elected to proceed with vaginal after section this . She and I did discuss the risks and benefit of this including the risk of uterine rupture and maternal/ compromise. At this point patient appears to be progressing normally we anticipate vaginal delivery. (1) 37 or more weeks gestation of Current Visit: Yes Status: Acute Code(s): QFK1188 - SNOMED Code(s): 42516531 (2) Previous delivery affecting Current Visit: Yes Status: Acute Code(s): O34.219 - MATERNAL CARE FOR UNSP TYPE SCAR FROM PREVIOUS DEL SNOMED Code(s): 922535735 (3) Spontaneous rupture of membranes Current Visit: No Status: Acute Code(s): QKA7978 - SNOMED Code(s): 097253852
[2022-04-12] MEDS ORDERED: ROPIVACAINE 5 MG/ML 20 ML AMPULE ONE (13:32)
[2022-04-12] MEDS ORDERED: SODIUM CHLORIDE 0.9% 100 ML BAG ONE (13:32)
[2022-04-12] MEDS ORDERED: fentaNYL (PF) 50 MCG/ML 5 ML AMP ONE (13:32)
[2022-04-12] MEDS ORDERED: CITRIC ACID-SODIUM CITRATE 15 ML CUP PO ONE (16:15)
[2022-04-12] MEDS: CALCIUM CARBONATE 500 MG CHEWABLE PO PRN (17:31)
--- NOTE | 2022-04-12 20:34 | P.PROBDLV ---
Vaginal Delivery Note - . Vaginal Delivery Note: The patient progressed to complete dilation after oxytocin augmentation of labor and epidural anesthesia. Once reaching complete, she began pushing. She pushed for approximately an hour and then brought 's head to a crown. At this point there was a tight band noted on the perineum and the patient was getting exhausted. Perineum was anesthetized with 1% lidocaine and then a small episiotomy was cut. With one further push, the infant's head delivered across the perineum followed by the anterior shoulder. The remainder the easily delivered. Nose and mouth were bulb suctioned. was placed on mother's abdomen and the cord was allowed to finish pulsating. Cord was then clamped and cut. A viable male is noted with scores of 9 at 1 minute and 9 at 5 minutes. Infant weight is 5 lbs. 15 oz. Mother was allowed to [place] with baby with skin to skin. Inspection of the perineum revealed a small midline episiotomy with no further extension. This area was anesthetized with 1% lidocaine and then 3-0 and 2-0 Vicryl suture in the usual multilayer fashion. At this point placenta had still not . Uterine fundus is massaged and the bladder is drained. Placenta then did separate and easily delivered intact with a three-vessel cord. Uterus contracted well after oxytocin was given and uterine massage was carried out. In section of the perineum revealed no further lacerations. Estimated blood loss is approximately 200 mL's. Both mother and infant are in stable condition after successful vaginal after .
[2022-04-12] MEDS ORDERED: BENZOCAINE/MENTHOL SPRAY 1 GM/SPRAY AEROSOL TOPICAL PRN (21:01)
[2022-04-12] MEDS ORDERED: SIMETHICONE 80 MG CHEWABLE PO PRN (22:35)
[2022-04-12] MEDS ORDERED: LANOLIN CREAM 5 GM TUBE TOPICAL PRN (22:35)
[2022-04-12] MEDS ORDERED: diphenhydrAMINE 50 MG/ML 1 ML VIAL IVP PRN ×2 (22:35)
[2022-04-12] MEDS ORDERED: HYDROCORTISONE 2.5% RECTAL CREAM 30 GM TUBE RECTAL PRN (22:35)
[2022-04-12] MEDS ORDERED: diphenhydrAMINE 25 MG CAP PO PRN (22:35)
[2022-04-12] MEDS ORDERED: diphenhydrAMINE 50 MG CAP PO PRN (22:35)
[2022-04-12] MEDS ORDERED: ZOLPIDEM 5 MG TAB PO PRN (22:35)
[2022-04-12] MEDS: IBUPROFEN 600 MG TAB PO PRN (22:43)
[2022-04-13] MEDS: ACETAMINOPHEN TAB 325 MG TAB PO PRN ×3 (01:28→12:22)
[2022-04-13] MEDS: IBUPROFEN 600 MG TAB PO PRN ×3 (04:31→15:47)
--- NOTE | 2022-04-13 06:44 | P.PNOBGVD ---
Subjective - Subjective Patient reports: Reports appetite normal, Reports voiding normally, Reports pain well controlled, Reports ambulating normally : doing well Objective - Latest Vital Signs Latest vital signs: Vital Signs Temp Pulse Resp BP Pulse Ox 04/13/22 04:00 98.3 F 90 17 119/80 97 04/13/22 00:00 98.4 F 83 17 126/82 98 04/12/22 22:25 97.8 F 96 15 130/81 04/12/22 21:55 96 16 117/74 100 04/12/22 21:25 97.6 F 96 16 123/60 100 04/12/22 21:10 97.9 F 100 16 119/58 100 04/12/22 20:55 99 16 155/80 100 04/12/22 20:40 99 16 119/79 04/12/22 20:25 97.9 F 102 H 16 121/93 04/12/22 09:21 97.2 F L 108 H 16 154/96 98 Intake and Output 04/12/22 04/12/22 04/13/22 14:59 22:59 06:59 Intake Total 20.433 Output Total 657 400 Balance -636.567 -400 Intake: Intake, IV Titration 20.433 Amount Oxytocin 30 Units/500 ml 20.433 Ns 30 unit In Saline 1 500ml.bag @ Per Protocol IV .Q0M [facility] Rx#:[id number] Output: Urine 400 Estimated Blood Loss 400 Output, Quantitative 257 Blood Loss Other: # Voids 3 0 Weight 89.358 kg - Exam Lungs: bilateral: normal Chest: Normal S1, Normal S2 Extremities: Present: normal Abdomen: Present: normal appearance, soft Uterus: Present: normal, firm Assessment and Plan Assessment: day #1. Patient is resting without complaints and wishes to go home. Vital signs are stable she's afebrile. Uterus is firm nontender and she is having normal lochia. I impression this is a normal course. Plan is to continue routine care discharge home later today. (1) 37 or more weeks gestation of Current Visit: Yes Status: Acute Code(s): [id number] - SNOMED Code(s): 45382857 (2) Previous delivery affecting Current Visit: Yes Status: Acute Code(s): O34.219 - MATERNAL CARE FOR UNSP TYPE SCAR FROM PREVIOUS DEL SNOMED Code(s): 349215357 (3) Spontaneous rupture of membranes Current Visit: No Status: Acute Code(s): QBJ3592 - SNOMED Code(s): 117028708
--- NOTE | 2022-04-13 06:48 | P.DS ---
Providers Date of admission: 04/12/22 09:08 Expected date of discharge: 04/13/22 Attending physician: Kush Stephenson Primary care physician: Stated None - Discharge Diagnosis(es) (1) 37 or more weeks gestation of Current Visit: Yes Status: Acute (2) Previous delivery affecting Current Visit: Yes Status: Acute (3) Spontaneous rupture of membranes Current Visit: No Status: Acute Hospital Course: Please see dictated H&P and delivery note on this patient's admission and delivery. Brief summary this is a pleasant 27-year-old 2 para 1 female 37-4/7 weeks admitted to labor and delivery for complaints of leaking of fluid. Patient's found to have spontaneous rupture membranes. Patient previous section desires . Patient had Pitocin augmentation of labor went on to have a vaginal delivery viable male infant. Please see dictated delivery note. day 1 patient wishes to go home. Patient's felt to be stable for discharge home follow up with me in 6 weeks. Procedures: Vaginal after section Patient Condition at Discharge: Good Plan - Discharge Summary Discharge Rx Participant: Yes New Discharge Prescriptions: New Ibuprofen [Motrin] 600 mg PO Q6HR PRN #40 tab PRN Reason: Mild Pain (Scale 1 To 3) No Action Vit No.180/Iron/Folic [ Plus Tablet] 1 tab PO DAILY Discharge Medication List Vit No.180/Iron/Folic [ Plus Tablet] 1 tab PO DAILY 08/09/20 [History] Ibuprofen [Motrin] 600 mg PO Q6HR PRN #40 tab 04/13/22 [Rx] Follow up Appointment(s)/Referral(s): Kush Stephenson MD [STAFF PHYSICIAN] - 6 Weeks Patient Instructions/Handouts: Vaginal Delivery (DC) Activity/Diet/Wound Care/Special Instructions: No intercourse or anything per vagina for 6 weeks. Please call if any fever, chills, excessive vaginal bleeding, and/or abdominal pain. Discharge Disposition: HOME SELF-CARE
[2022-04-13 07:56] LABS: Basophils % (A) 0 %; Eosinophils % (A) 0 %; HCT 31.5 % (34.0-46.0); Hypochromasia Slight; Lymphocytes % (A) 16 %; MCH 27.4 pg (25.0-35.0); MCHC 31.5 g/dL (31.0-37.0); MCV 86.7 fL (80.0-100.0); Monocytes # (A) 0.6 k/uL (0-1.0); Monocytes % (A) 5 %; Neutrophils # (A) 9.7 k/uL (1.3-7.7); Neutrophils % (A) 77 %; Platelet Count 220 k/uL (150-450); RBC 3.63 m/uL (3.80-5.40); RDW 13.6 % (11.5-15.5); WBC 12.6 k/uL (3.8-10.6)
[2022-04-13 07:57] LABS: HGB 9.9 gm/dL (11.4-16.0)
[2022-04-13] MEDS ORDERED: SENNOSIDES-DOCUSATE SODIUM 1 EACH TAB PO SCH (08:00)
[2022-04-13 08:51] VITALS: RESP 15
[2022-04-13] MEDS: CALCIUM CARBONATE 500 MG CHEWABLE PO PRN (11:39)
[2022-04-13 16:33] VITALS: BP 122/65; PULSE 88; TEMP 98.4
--- NOTE | 2022-04-13 18:28 | P.MSEPDOC ---
Presenting Problems - Arrival Data Date of Arrival on Unit: 04/12/22 Time of Arrival on Unit: 08:30 Mode of Transport: Ambulatory - Complaint OB-Reason for Admission/Chief Complaint: Rule Out SROM Comment: 0600 SROM, clear per patient. Medical History - Information : 2 Para: 1 Term: 0 : 1 Abortions: Spontaneous or Elective: 0 Number of Living Children: 1 - Gestational Age Gestational Age by CATHERINE (wks/days): 37 Weeks and 4 Days - History Complications: Prior , Prior Review of Systems - Review of Systems Constitutional: No problems Breast: No problems ENT: No problems Cardiovascular: No problems Respiratory: No problems Gastrointestinal: No problems Genitourinary: No problems Musculoskeletal: No problems Neurological: No problems Skin: No problems Vital Signs - Temperature Temperature: 98.4 F Temperature Source: Oral - Pulse Pulse Oximetery Pulse Rate: 88 Pulse Assessment Method: Automatic Cuff - Respirations Respiratory Rate: 15 Oxygen Delivery Method: Room Air - Blood Pressure Right Arm Blood Pressure: 122/65 Blood Pressure Mean: 84 Blood Pressure Source: Automatic Cuff - Comment Vital Signs Comment: Blood Pressure repeat when patient not talking, 129/84. Medical Screen Scoring - Cervical Exam Dilation (cm): 0.5 Effacement (%): 50 Station: -2 Membranes: Ruptured - Assessment - Baby A Baseline FHR: 120 Heart Rate - NICHD Category: Category I (Normal) NST: Reactive Physician Notification - Physician Notified Physician Notified Date: 04/12/22 Physician Notified Time: 09:10 Physician: Kush Stephenson New Order Received: Yes - Notification Comment Comment: Spoke with Dr. Stephenson reported 37.4 EDC 04/29/22 SROM 0600 clear fluid. Amnisure positive, CVE fingertip, Reported contractions 15min apart per patient. Orders to start pitocin and titration not to exceed 20, If blood pressure elevated again to get PIH labs sent. Maternal Triage Index - Prompt/Priority 3 Prompt Priority 3: Yes Criteria Met for Priority 3: SROM 37.4 Disposition - Disposition OB Disposition: Admit, LDRP Suite I agree with the RN Medical Screening Exam: Yes Case reviewed; plan agreed upon as documented in EMR&OBIX.: Yes Diagnosis: ENCOUNTER FOR FULL-TERM UNCOMPLICATED DELIVERY
== END 2022-04-13 20:31 | disposition home or self-care (01) | DRG 807 ==
LOC: FBPOP 08:35 → 4FBP 09:08
PROVIDERS: ADMIT Obstetrics & Gynecology; ATTEND Obstetrics & Gynecology
PROC: 10E0XZZ Delivery of Products of Conception, External Approach (ICD-10-PCS; principal; 2022-04-12)
PROC: 0W8NXZZ Division of Female Perineum, External Approach (ICD-10-PCS; principal; 2022-04-12)
DX: O34.211 Maternal care for low transverse scar from previous cesarean delivery (principal); Z37.0 Single live birth; Z3A.37 37 weeks gestation of pregnancy; Z79.899 Other long term (current) drug therapy
CPT/HCPCS: 59025; 84112; 85025; 86850; 86900; 86901; 99213

== ENCOUNTER → 2023-02-22 | Outpatient (CLI) | payer OTHER ==
--- NOTE | 2023-02-22 14:47 | US ---
EXAMINATION TYPE: Transabdominal DATE OF EXAM: 02/22/2023 2:16 PM COMPARISON: NONE CLINICAL INDICATION: Female, 28 years old with history of O46.91 BLEEDING/SPOTTING; spotting hx of bl eed. Spotting. EXAM PERFORMED: Transvaginal (TV) and Transabdominal (TA) EXAM MEASUREMENTS: GESTATIONAL AGE / DATING Physician Established: Not yet established Dates by LMP: (7 weeks/2 days) EDC: 10/09/2023 Dates by First Scan: No previous this is first Dates by Current Scan for: (7 weeks/4 days) EDC: 10/07/2023 MATERNAL ANATOMY Uterus: 12.3 x 5.9 x 5.5 Right Ovary: 3.5 x 2.6 x 2.1 cm Left Ovary: 2.5 x .8 x 2.2 cm Post CDS / Adnexa: wnl Presence of free fluid: no Presence of corpus luteal cyst: yes Presence of subchorionic bleed: no GESTATION / SURVEY CRL: 1.23 cm (7 weeks/4 days) Yolk Sac (normal less than 6mm): 2 mm Heart Rate: 138 bpm Rhythm: Normal IUP: Viable IUP IMPRESSION: Single live intrauterine gestation with ultrasound age 7 weeks 4 days which is concordant with dates by last menstrual period.
== END | disposition home or self-care (01) ==
LOC: RADUSWWP 13:00
PROVIDERS: ATTEND Obstetrics & Gynecology
DX: O46.91 Antepartum hemorrhage, unspecified, first trimester (principal); Z3A.01 Less than 8 weeks gestation of pregnancy
CPT/HCPCS: 76801; 76817